=== PATIENT | male | born 1970 | race Caucasian/White ===

== ENCOUNTER → 2016-12-30 | Outpatient (CLI) | payer BC ==
--- NOTE | 2016-12-30 10:43 | DIAGNOSTIC IMAGING REPORT ---
LUMBAR SPINE 5 VIEWS CLINICAL HISTORY: Low back pain. FINDINGS: 5 views of the lumbar spine are compared to study dated 12/11/2008. The skeletal structures are well mineralized. There is no radiographic evidence of fracture or malalignment. Vertebral body height and alignment are maintained. The transverse and spinous processes are intact. There is no evidence of spondylolysis. Small anterior osteophytes are seen throughout. Mild degenerative disc space narrowing seen at L5-S1 with minimal endplate sclerosis. The remaining intervertebral disc spaces are well-maintained. Minimal facet arthropathy is seen in the lower lumbar region. The visualized bony pelvis appears intact. There is a nonobstructed abdominal bowel gas pattern. Vascular calcifications are noted in the pelvis. IMPRESSION: No acute bony abnormality is seen involving the lumbosacral spine. Electronically signed by: Asim Ramirez M.D. 12/30/2016 10:42 AM Dictated Date/Time: 12/30/2016 10:41 AM
--- NOTE | 2016-12-30 10:44 | DIAGNOSTIC IMAGING REPORT ---
SI JOINTS 3 OR MORE VIEWS CLINICAL HISTORY: Lower back pain. COMPARISON STUDY: CT of the abdomen and pelvis February 25, 2012. FINDINGS: The sacroiliac joints are intact without evidence for ankylosis. There is no fracture or suspicious lesion. Mild facet arthrosis is shown within the lower lumbar spine. IMPRESSION: Unremarkable sacroiliac joint radiographs. Electronically signed by: Romario Ramirez M.D. 12/30/2016 10:42 AM Dictated Date/Time: 12/30/2016 10:41 AM
== END | disposition home or self-care (01) ==
LOC: C.RAD1850 10:20
PROVIDERS: ATTEND Nurse Practitioner Family
DX: M54.5 Low back pain (principal)